=== PATIENT | male | born 1930 | race Caucasian/White ===

== ENCOUNTER 2017-05-30 08:00 | Outpatient (CLI) | payer BC, OTHER ==
[2017-05-30 19:27] LABS: HGB - HEMOGLOBIN 13.3 g/dL (14.0-18.0); MEAN CORPUSCULAR HEMOGLOBIN 32.5 pg (27.0-31.0); MEAN CORPUSCULAR HGB CONC 33.3 g/dL (32.0-36.0); MEAN CORPUSCULAR VOLUME 97.6 fL (80.0-94.0); MEAN PLATELET VOLUME 9.6 fL (7.4-11.4); RED BLOOD COUNT 4.09 10^6/uL (4.70-6.10); WHITE BLOOD COUNT 6.1 x10^3/uL (4.8-10.8)
[2017-05-30 19:34] LABS: CALCIUM 8.5 mg/dL (8.5-10.3); CREATININE 1.1 mg/dL (0.6-1.2)
== END 2017-05-30 23:59 | disposition home or self-care (01) ==
LOC: LAB.WCP 08:00
PROVIDERS: ATTEND Family Medicine
DX: R60.9 Edema, unspecified (principal); I25.10 Atherosclerotic heart disease of native coronary artery without angina pectoris; I10 Essential (primary) hypertension
CPT/HCPCS: 36415; 80048; 83880

== ENCOUNTER 2018-07-08 04:17 | Emergency (ER) | payer OTHER ==
--- NOTE | 2018-07-08 04:28 | ED Physician Documentation ---
PD HPI UPPER EXT INJURY - Stated complaint Stated Complaint: WRIST PX - Chief complaint Chief Complaint: Trauma Ext - History obtained from History obtained from: Patient - History of Present Illness Location: Left, Wrist Type of injury: Fall Where injury occurred: Home Timing - onset: Enter time (03:15) Timing - details: Abrupt onset Pain level now: 8 Improved by: Rest Worsened by: Moving, Palpating Associated symptoms: Swelling. No: Weakness, Numbness Contributing factors: No: Anticoagulated, Prior ortho surgery, Prosthetic joint Similar symptoms before: Has not had sx before Recently seen: Not recently seen - Additonal information Additional information: at 3:15 AM, tripped and fell while ambulating in his home, landed on left side and left outstretched arm. He is right hand dominant. He c/o left wrist pain and left posterolateral chest pain. Denies head injury, denies loc, denies PALOMARES Review of Systems Cardiac: reports: Reviewed and negative Respiratory: reports: Reviewed and negative GI: reports: Reviewed and negative Musculoskeletal: reports: Joint pain (left wrist), Joint swelling. denies: Neck pain, Back pain Neurologic: reports: Reviewed and negative PD PAST MEDICAL HISTORY - Past Medical History Past Medical History: Yes Other Past Medical History: essential tremor - Present Medications Home Medications: Ambulatory Orders Medication Instructions Recorded Confirmed oxyCODONE [Roxicodone] 5 - 10 mg PO Q6H PRN #20 tablet 07/08/18 - Allergies Allergies/Adverse Reactions: Allergies Allergy/AdvReac Type Severity Reaction Status Date / Time No Known Drug Allergies Allergy Verified 07/08/18 04:27 - Living Situation Living Arrangement: reports: At home - Social History Does the pt smoke?: No PD ED PE NORMAL - Vitals Vital signs reviewed: Yes - General General: Alert and oriented X 3, Well developed/nourished, Other (appears to be in mild/moderate painful distress) - Neck Neck: No bony TTP - Cardiac Cardiac: RRR, No murmur - Respiratory Respiratory: No respiratory distress, Clear bilaterally - Abdomen Abdomen: Soft, Non tender - Neuro Neuro: Alert and oriented X 3, video editor 2-12 intact, No motor deficit, No sensory deficit, Normal speech Eye Opening: Spontaneous Motor: Obeys Commands Verbal: Oriented GCS Score: 15 PD ED PE EXPANDED - Extremities Extremities: Deformity, Tenderness, Limited ROM, Swelling, Abrasion, Left wrist ABEL UE/Hands Visual: 1 - abrasion (superficial linear abrasion; no active bleeding.) Results - Vitals Vitals: Vital Signs - 24 hr 07/08/18 07/08/18 07/08/18 04:21 05:05 06:19 Temperature 36.6 C 36.6 C Heart Rate 69 56 L Respiratory 18 20 Rate Blood Pressure 149/107 H 142/101 H 126/79 O2 Saturation 99 96 Oxygen O2 Source Room air - Labs Labs: Laboratory Tests 07/08/18 07/08/18 07/08/18 04:35 04:35 04:35 WBC 6.2 RBC 4.21 L Hgb 14.0 Hct 41.6 L MCV 98.8 H MCH 33.3 H MCHC 33.7 RDW 13.4 Plt Count 161 MPV 9.3 Neut # (Auto) 3.9 Lymph # (Auto) 1.3 L [place] # (Auto) 0.7 Eos # (Auto) 0.3 Baso # (Auto) 0.0 Absolute Nucleated RBC 0.00 Nucleated RBC % 0.1 PT 10.8 INR 1.0 APTT 22.8 L Sodium 142 Potassium 4.7 Chloride 102 Carbon Dioxide 30 Anion Gap 10.0 BUN 22 H Creatinine 1.3 H Estimated GFR (MDRD) 52 L Glucose 131 H Calcium 8.7 - Rads (name of study) xray left wrist Radiology: Prelim report reviewed, See rad report left ribs w/ PA chest xray Radiology: Prelim report reviewed, See rad report post-reduction xrays left wrist Radiology: Prelim report reviewed, See rad report 2nd post-reduction left wrist xrays Radiology: Prelim report reviewed, See rad report Procedures - Reduction Body part reduced: Left, Wrist Fracture or dislocation: Fracture Anesthesia: Hematoma block, Lidocaine (enter cc) (6), Morphine, Dilaudid Reduction aftercare: NV intact, Alignment improved (clinically appeared improved but xrays show inadequate reduction after my attempt. Dr. Camarillo then performed reduction and second set of post-reduction xrays show good reduction.), Splint applied, Sling, Patient tolerated well, Unable to reduce. No: Xray confirms reduction PD MEDICAL DECISION MAKING - ED course Complexity details: reviewed results, re-evaluated patient, considered differential, d/w patient ED course: d/w Dr. Camarillo; recommends hematoma block and reduction, splint, and f/u outpatient. I performed the hematoma block and attempted reduction, but post-reduction films suggest inadequate positioning/reduction. By this time, Dr. Camarillo was in ED and so he then performed reduction and 2nd post-reduction xrays reveal good alignment. Departure - Departure Disposition: 01 Home, Self Care Clinical Impression: Wrist fracture, left, Rib fracture Condition: Good Instructions: ED Fx Colles Wrist Redu Requ, ED Fx Rib, ED Sling, ED Splint Care Fiberglass Follow-Up: Faizan Camarillo MD [Provider Admit Priv/Credential] - Within 1 week Prescriptions: oxyCODONE [Roxicodone] 5 - 10 mg PO Q6H PRN #20 tablet PRN Reason: Pain Discharge Date/Time: 07/08/18 08:55
[2018-07-08] MEDS ORDERED: MORPHINE 2 MG/ML SYRINGE IVP STA (04:36)
[2018-07-08 05:07] LABS: BASOPHILS % (AUTO) 0.4 %; EOSINOPHILS # (AUTO) 0.3 10^3/uL (0.0-0.7); EOSINOPHILS % (AUTO) 4.2 %; LYMPHOCYTES # (AUTO) 1.3 10^3/uL (1.5-3.5); LYMPHOCYTES % (AUTO) 21.7 %; MEAN CORPUSCULAR HEMOGLOBIN 33.3 pg (27.0-31.0); MEAN CORPUSCULAR HGB CONC 33.7 g/dL (32.0-36.0); MEAN CORPUSCULAR VOLUME 98.8 fL (80.0-94.0); MEAN PLATELET VOLUME 9.3 fL (7.4-11.4); MONOCYTES # (AUTO) 0.7 10^3/uL (0.0-1.0); MONOCYTES % (AUTO) 11.4 %; NEUTROPHILS # (AUTO) 3.9 10^3/uL (1.5-6.6); NEUTROPHILS % (AUTO) 62.3 %; PLT - PLATELET COUNT 161 10^3/uL (130-450); RED BLOOD COUNT 4.21 10^6/uL (4.70-6.10); RED CELL DISTRIBUTION WIDTH 13.4 % (12.0-15.0); WHITE BLOOD COUNT 6.2 x10^3/uL (4.8-10.8)
[2018-07-08 05:10] LABS: PT - PROTHROMBIN TIME 10.8 secs (9.9-12.6)
[2018-07-08 05:13] LABS: CALCIUM 8.7 mg/dL (8.5-10.3); CREATININE 1.3 mg/dL (0.6-1.2)
[2018-07-08 05:18] LABS: PARTIAL THROMBOPLASTIN TIME 22.8 secs (24.9-33.3)
[2018-07-08] MEDS ORDERED: HYDROmorphone 1 MG/ML CARPUJECT IVP STA (05:36)
--- NOTE | 2018-07-08 05:51 | XRAY Report ---
Reason: injury deformity after fall Procedure Date: 07/08/2018 Accession Number: [id number] / [id number] Procedure: XR - Wrist 4 View LT CPT Code: FULL RESULT: EXAM: LEFT WRIST RADIOGRAPHY EXAM DATE: 07/08/2018 05:32 AM. CLINICAL HISTORY: Injury deformity after fall. COMPARISON: None. TECHNIQUE: 4 views. FINDINGS: Bones: Osteopenia. Impacted Colles' fracture of the distal radius with 27 degrees dorsal angulation of the distal radial articular surface. Possible small ulnar styloid fracture. Joints: No dislocation seen. Mild degenerative changes. Soft Tissues: Soft tissue swelling. IMPRESSION: 1. Osteopenia with impacted Colles' fracture showing 27 degrees dorsal angulation. 2. Possible small ulnar styloid fracture. RADIA
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
[2018-07-08 06:20] VITALS: BP 126/79
[2018-07-08] MEDS ORDERED: LIDOCAINE 1% 2 ML VIAL SUBQ STA (06:20)
--- NOTE | 2018-07-08 07:35 | XRAY Report ---
Reason: post-reduction Procedure Date: 07/08/2018 Accession Number: [id number] / [id number] Procedure: XR - Wrist 2 View LT CPT Code: FULL RESULT: EXAM: LEFT WRIST RADIOGRAPHY EXAM DATE: 07/08/2018 07:23 AM. CLINICAL HISTORY: Distal left radius fracture. Status post reduction. COMPARISON: WRIST 4 VIEW LT 07/08/2018 5:04 AM. TECHNIQUE: 2 views. FINDINGS: Bones: Interval placement of overlying plaster. Distal left radius fracture is again seen with persistent dorsal displacement measuring up to 7 mm and dorsal angulation measuring approximately 20-25 degrees. Offset of the fracture fragments is again evident seen best on the frontal view. Joints: No dislocation. Degenerative changes. Soft Tissues: Soft tissue edema. Detail obscured. Radiopaque foreign body present in the soft tissues adjacent to the base of the left third digit again seen. IMPRESSION: 1. Interval placement of overlying plaster. 2. Distal left radius fracture without sniffing change in position or alignment. RADIA
--- NOTE | 2018-07-08 08:11 | XRAY Report ---
Reason: 2nd post-reduction xrays Procedure Date: 07/08/2018 Accession Number: [id number] / [id number] Procedure: XR - Wrist 2 View LT CPT Code: FULL RESULT: EXAM: LEFT WRIST RADIOGRAPHY EXAM DATE: 07/08/2018 08:05 AM. CLINICAL HISTORY: Distal left radius fracture. Second postreduction. COMPARISON: WRIST 2 VIEW LT 07/08/2018 7:05 AM WRIST 4 VIEW LT 07/08/2018 5:04 AM. TECHNIQUE: 2 views. FINDINGS: Bones: Distal left radius fracture is again seen with largely resolved dorsal displacement of the distal fracture fragment and improved dorsal angulation now measuring approximately 5 degrees. Slight offset of the fracture fragments again evident on the frontal view. Detail obscured by overlying plaster. Joints: No dislocation. Degenerative changes. Soft Tissues: Soft tissue edema. Obscured detail. Foreign body in the soft tissues of the left proximal third digit again seen. IMPRESSION: 1. Improved alignment status post reduction of distal left radius fracture. RADIA
--- NOTE | 2018-07-08 10:47 | CONSULTATION NOTE ---
DATE OF SERVICE: 07/08/2018 Physician: Faizan Camarillo MD REQUESTING PHYSICIAN: Emergency room doctor, Matheus Wright MD REASON FOR CONSULTATION: Closed comminuted intra-articular left distal radius fracture. HISTORY OF PRESENT ILLNESS: Patient is an 88-year-old male who suffered a ground level fall in his h ome, noted deformity and pain in his left wrist, and came to the emergency room. He was found then t o have a small laceration on the volar aspect of his wrist and wrist deformity and pain, with x-rays revealing an intra-articular distal radial fracture with dorsal angulation and no air in the soft tis sues in the anterior wrist. The emergency room physician underwent a closed reduction maneuver, and the reduction again was unacceptable, still with displacement and angulation. He asked me to interve ne for a repeat closed reduction. PHYSICAL EXAMINATION: My exam of the patient revealed him to have a deformity of his wrist and a sma ll transverse punctate wound on the volar aspect without persistent bleeding and seemingly superficia l with no wear seen on the x-ray. His neurovascular exam was normal. PROCEDURE: The patient underwent a closed reduction of his wrist with manipulation, and this resulte d in correction of his deformity. Soft dressings were applied to his wrist and padding, so that his splint could be reapplied in a comfortable fashion, without excessive pressure. X-rays were redone, confirming that the patient's fracture had been adequately aligned, close to a neutral tilt, and eldon cular congruity restored. PLAN: At this time, is for the patient to be discharged home with pain pills and a return visit to [facility] in 5 days with emphasis on ice, elevation, and finger motion. TD: 07/08/2018 10:38
== END 2018-07-08 08:55 | disposition home or self-care (01) ==
LOC: ED 04:17
DX: S60.812A Abrasion of left wrist, initial encounter (principal); S52.532A Colles' fracture of left radius, initial encounter for closed fracture; S22.32XA Fracture of one rib, left side, initial encounter for closed fracture; W01.0XXA Fall on same level from slipping, tripping and stumbling without subsequent striking against object, initial encounter; Y93.01 Activity, walking, marching and hiking; Y92.009 Unspecified place in unspecified non-institutional (private) residence as the place of occurrence of the external cause
CPT/HCPCS: 25605; 36415; 71101; 73100; 73110; 80048; 85025; 85610; 85730; 99283; 99284; J1170; J2270

== ENCOUNTER 2019-03-03 15:17 | Outpatient (CLI) | payer OTHER ==
--- NOTE | 2019-03-04 15:53 | XRAY Report ---
Reason: COUGH Procedure Date: 03/03/2019 Accession Number: [id number] / [id number] Procedure: WCP - Chest 2 View X-Ray CPT Code: 83480 Final Report FULL RESULT: EXAM: CHEST RADIOGRAPHY EXAM DATE: 03/03/2019 03:17 PM. CLINICAL HISTORY: COUGH. COMPARISON: RIBS W/PA CHEST LT 07/08/2018 5:04 AM. TECHNIQUE: 2 views. FINDINGS: Lungs/Pleura: No focal opacities evident. No pleural effusion. No pneumothorax. Normal volumes. Mediastinum: Heart and mediastinal contours are unremarkable. Other: Prominent anterior osteophyte formations in the mid thoracic spine IMPRESSION: No focal consolidation. RADIA
== END 2019-03-03 23:59 | disposition home or self-care (01) ==
LOC: DI.WCP 15:17
PROVIDERS: ATTEND Family Medicine
DX: R05 Cough (principal)
CPT/HCPCS: 71046

== ENCOUNTER 2020-01-07 07:39 | Outpatient (CLI) | payer OTHER ==
[2020-01-07 11:46] LABS: BASOPHILS % (AUTO) 0.5 %; EOSINOPHILS # (AUTO) 0.2 10^3/uL (0.0-0.7); EOSINOPHILS % (AUTO) 2.9 %; HGB - HEMOGLOBIN 13.8 g/dL (14.0-18.0); LYMPHOCYTES # (AUTO) 1.1 10^3/uL (1.5-3.5); LYMPHOCYTES % (AUTO) 18.5 %; MEAN CORPUSCULAR HEMOGLOBIN 33.1 pg (27.0-31.0); MEAN CORPUSCULAR HGB CONC 33.2 g/dL (32.0-36.0); MEAN CORPUSCULAR VOLUME 99.8 fL (80.0-94.0); MEAN PLATELET VOLUME 11.2 fL (7.4-11.4); MONOCYTES # (AUTO) 0.9 10^3/uL (0.0-1.0); MONOCYTES % (AUTO) 15.6 %; NEUTROPHILS # (AUTO) 3.6 10^3/uL (1.5-6.6); NEUTROPHILS % (AUTO) 62.2 %; PLT - PLATELET COUNT 187 10^3/uL (130-450); RED BLOOD COUNT 4.17 10^6/uL (4.70-6.10); RED CELL DISTRIBUTION WIDTH 12.5 % (12.0-15.0); WHITE BLOOD COUNT 5.8 x10^3/uL (4.8-10.8)
[2020-01-07 12:29] LABS: ALBUMIN 4.1 g/dL (3.2-5.5); ALBUMIN/GLOBULIN RATIO 1.6 (1.0-2.2); ALKALINE PHOSPHATASE 63 IU/L (42-121); ALT ALANINE AMINOTRANSFERASE 21 IU/L (10-60); AST ASPARTATE AMINOTRANSFERASE 25 IU/L (10-42); BILIRUBIN,TOTAL 0.8 mg/dL (0.2-1.0); BUN - BLOOD UREA NITROGEN 23 mg/dL (6-20); CALCIUM 8.8 mg/dL (8.5-10.3); CARBON DIOXIDE - CO2 32 mmol/L (21-32); CHLORIDE 103 mmol/L (101-111); CHOL/HDL RATIO 2.9 (<5.0); CHOLESTEROL 129 mg/dL; CREATININE 1.4 mg/dL (0.6-1.2); GLUCOSE 104 mg/dL (70-100); HDL CHOLESTEROL 45 mg/dL; LDL CHOLESTEROL,CALCULATED 63 mg/dL; LDL/HDL RATIO 1.4 (<3.6); SODIUM 140 mmol/L (135-145); TOTAL PROTEIN 6.7 g/dL (6.7-8.2); VLDL CHOLESTEROL 21 mg/dL
== END 2020-01-07 23:59 | disposition home or self-care (01) ==
LOC: LAB.WCP 07:39
PROVIDERS: ATTEND Family Medicine
DX: E78.5 Hyperlipidemia, unspecified (principal); I21.3 ST elevation (STEMI) myocardial infarction of unspecified site; I25.10 Atherosclerotic heart disease of native coronary artery without angina pectoris; R25.1 Tremor, unspecified; Z86.79 Personal history of other diseases of the circulatory system
CPT/HCPCS: 36415; 80053; 80061; 83721; 84443; 85025